=== PATIENT | male | born 1955 | race Caucasian/White ===

== ENCOUNTER 2018-09-23 13:08 | Emergency (ER) | payer MEDICAID, OTHER ==
[2018-09-23 14:39] VITALS: BP 133/70
--- NOTE | 2018-09-23 14:56 | UC ---
Skin Complaint HPI - HPI Summary HPI Summary: 63 yo with PMH of Afib, DM, cerebral palsy, BPH, here with [employer]/Xiao--had a fall about 1 1/2 years ago on the ice, had open wound RLL, took several months for wound to heal; last week noticed that same site started to open up again, [employer] put large bandaid over wound, but 3 days ago patient noticed an open wound area that is weeping adjacent to it. The skin now affected was not covered by the bandaid. - History of Current Complaint Chief Complaint: UCSkin Time Seen by Provider: 09/23/18 14:19 Stated Complaint: LEFT LEG OLD WOUND RE-OPEN Hx Obtained From: Family/Probation And Patrol Agent Onset/Duration: Sudden Onset Skin Exposure Onset/Duration: Days Ago Onset Severity: Mild Current Severity: Severe Pain Intensity: 8 Location: Discrete, Other - right funez Aggravating Factor(s): Nothing Alleviating Factor(s): Nothing Associated Signs & Symptoms: Positive: Negative - Allergy/Home Medications Allergies/Adverse Reactions: Allergies Allergy/AdvReac Type Severity Reaction Status Date / Time adhesive Allergy Intermediate skin Verified 09/23/18 14:40 irritation cephalexin [From Keflex] Allergy Intermediate Rash Verified 09/23/18 14:40 Home Medications: Home Medications Acetaminophen [Tylenol Extra Strength] 3 tab PO BID 09/23/18 [History Confirmed 09/23/18] Furosemide TAB* [Lasix TAB*] 20 mg PO DAILY 09/23/18 [History Confirmed 09/23/18 ] Glucosam/Chondr/Collagn/Hyalur [Th Glucosamine/Chondroiti] 1 cap PO DAILY [History Confirmed 09/23/18] L.acidoph,Paracasei, B.lactis [Probiotic] 1 each PO BID 09/23/18 [History Confirmed 09/23/18] Loperamide CAP* [Imodium CAP*] 2 mg PO DAILY 09/23/18 [History Confirmed ] Meloxicam(NF) [Mobic(NF)] 15 mg PO DAILY 09/23/18 [History Confirmed 09/23/18] Metoprolol Tartrate TAB* [Lopressor TAB*] 25 mg PO BID 09/23/18 [History Confirmed 09/23/18] Multivitamin With Vitamin D 1 tab DAILY 09/23/18 [History Confirmed 09/23/18] Omeprazole CAP* [Prilosec CAP* 20 MG] 20 mg PO DAILY 09/23/18 [History Confirmed 09/23/18] Spironolactone TAB* [Aldactone TAB*] 25 mg PO DAILY 09/23/18 [History Confirmed 09/23/18] Review of Systems All Other Systems Reviewed And Are Negative: Yes Skin: Positive: Rash PMH/Surg Hx/FS Hx/Imm Hx Endocrine History: Diabetes Cardiovascular History: Hypertension, Atrial Fibrillation - Surgical History Surgical History: Yes Surgery Procedure, Year, and Place: bilat hip replacement. gallbladder. BPH- has groves - Social History Alcohol Use: None Substance Use Type: None Smoking Status (MU): Never Smoked Tobacco Physical Exam Triage Information Reviewed: Yes Appearance: Well-Appearing, Well-Nourished, Obese Vital Signs: Initial Vital Signs Temp 97.8 F 09/23/18 14:27 Pulse 101 09/23/18 14:27 Resp 19 09/23/18 14:27 BP 133/70 09/23/18 14:27 Pulse Ox 98 09/23/18 14:27 Vital Signs Reviewed: Yes Eyes: Positive: Conjunctiva Clear ENT: Positive: Hearing grossly normal, Pharynx normal, Uvula midline Neck: Positive: Supple, Nontender, No Lymphadenopathy Respiratory: Positive: Chest non-tender, Lungs clear, Normal breath sounds, No respiratory distress Cardiovascular: Positive: RRR, No Murmur, Pulses Normal, Brisk Capillary Refill Abdomen Description: Positive: Nontender Male Genital Exam: Positive: Other - folley in place Musculoskeletal: Positive: Strength Intact, ROM Intact, No Edema, Edema @ - lower extremities right ++, Left + Neurological: Positive: Alert, Muscle Tone Normal Skin Exam: Other - superficial abrasion on mid anterior right funez approx 5.5x4.7cm in dimensions, with lymph seeping through it. No discharge, no surrounding soft tissue swelling, no bleeding. Medial to it a scab is noticed about 0.5x0.4cm , dry. Distal right leg with post inflammatory hyperpigmentation. Course/Dx - Course Course Of Treatment: Patient presents with skin lesion for the past 3 days, consistent with abrasion . He does not recall any trauma, abrasion is very superficial, and lymphatic drainage is noticed. Culture was obtained and start with prophylactic Bactrim. continue Compressive stockings to control pedal edema. F/u with PCP in 1-2 weeks. - Diagnoses Provider Diagnoses: Skin abrasion. DM. HTN Discharge - Sign-Out/Discharge Documenting (check all that apply): Patient Departure All imaging exams completed and their final reports reviewed: No Studies - Discharge Plan Condition: Stable Disposition: HOME Patient Education Materials: Abrasion (ED), Sulfamethoxazole/Trimethoprim (By mouth) Referrals: Emmanuelle Ortega NP [Primary Care Provider] - - Billing Disposition and Condition Condition: STABLE Disposition: Home
--- NOTE | 2018-09-24 21:33 | UC ---
- Progress Note Progress Note: wound prelim no organism no growth ljj 09/24/2018 Discharge - Sign-Out/Discharge Documenting (check all that apply): Post-Discharge Follow Up All imaging exams completed and their final reports reviewed: No Studies - Discharge Plan Condition: Stable Disposition: HOME Prescriptions: Bacitracin Zinc/Polymyxin B [Band-Aid + Antibiotic Ointment] 1 each TP DAILY 7 Days #1 bandage Compress.stocking,Knee,Reg,Lrg [Relief Knee Close Toe] 1 each MC DAILY 30 Days # 2 each Sulfamethox/Trimethoprim DS* [Bactrim DS 800/160 TAB*] 1 tab PO BID 7 Days #14 tab Patient Education Materials: Sulfamethoxazole/Trimethoprim (By mouth), Abrasion (ED) Referrals: Emmanuelle Ortega NP [Primary Care Provider] - - Billing Disposition and Condition Condition: STABLE Disposition: Home
== END 2018-09-23 15:28 | disposition home or self-care (01) ==
LOC: UCCORT 13:08
DX: S80.811A Abrasion, right lower leg, initial encounter (principal); X58.XXXA Exposure to other specified factors, initial encounter; Y92.9 Unspecified place or not applicable; E11.9 Type 2 diabetes mellitus without complications; I10 Essential (primary) hypertension; G80.9 Cerebral palsy, unspecified; Z88.1 Allergy status to other antibiotic agents; Z79.84 Long term (current) use of oral hypoglycemic drugs; I48.91 Unspecified atrial fibrillation
CPT/HCPCS: 87070; 87205; 99202; G0463